=== PATIENT | female | born 1930 | race Caucasian/White ===

== ENCOUNTER 2017-03-01 09:12 | Outpatient (CLI) | payer MEDICARE, OTHER | END 2017-03-01 09:13 | disposition home or self-care (01) | LOC: RT.S 09:12 | PROVIDERS: ATTEND Physician Assistant | DX: R06.02 Shortness of breath (principal) | CPT/HCPCS: 93005 ==

== ENCOUNTER 2017-07-15 12:43 | Outpatient (CLI) | payer MEDICARE, OTHER ==
[2017-07-15] MEDS ORDERED: GADOBUTROL 7.5 MMOL/7.5 ML VIAL ONE (13:34)
[2017-07-15] MEDS ORDERED: GADOBUTROL 7.5 MMOL/7.5 ML VIAL IVP ONE (14:45)
--- NOTE | 2017-07-16 09:45 | MRI Report ---
EXAM: MR PELVIS WITH AND WITHOUT CONTRAST EXAM DATE: 07/15/2017 03:17 PM. CLINICAL HISTORY: PAIN, RECTAL DISCHARGE, BULGE, CONCERN FOR FISTULA. COMPARISON: None. TECHNIQUE: Multiplanar breath-hold T1, T2 sequences obtained through the pelvis on an MR scanner. Betina ges obtained before and after administration of 4 mL Gadavist intravenous contrast. FINDINGS: Bowel: Sigmoid diverticulosis. No inflammation. No fistula evident. No perirectal or soft tissue abscess. Bladder: The urinary bladder appears normal. Reproductive Organs: Prior hysterectomy. Left ovary or ovarian remnant measures 1.8 x 0.8 x 1.4 cm. R ight ovary measures 1.6 x 0.8 x 1.4 cm. No suspicious adnexal mass. Left perineal soft tissue edema. No soft tissue air. Bony Structures: No suspicious bony lesions. IMPRESSION: 1. Left perineal soft tissue edema. 2. No evidence for perianal fistula or soft tissue abscess. 3. Diverticulosis. No inflammation evident. 4. Prior hysterectomy. [facility] Referring Provider Line: [phone] SITE ID: [id number]
== END 2017-07-15 12:44 | disposition home or self-care (01) ==
LOC: LAB 12:43
PROVIDERS: ATTEND Physician Assistant
DX: R60.9 Edema, unspecified (principal); K57.90 Diverticulosis of intestine, part unspecified, without perforation or abscess without bleeding
CPT/HCPCS: 36415; 72197; 82565; A9585

== ENCOUNTER 2017-09-21 09:14 | Outpatient (CLI) | payer MEDICARE, OTHER ==
--- NOTE | 2017-09-21 13:46 | Ultrasound Report ---
RIGHT UPPER QUADRANT ULTRASOUND: 09/21/2017 CLINICAL INDICATION: Pain. TECHNIQUE: Real-time scanning was performed with in home sales representative static images obtained. FINDINGS: The liver measures 13.8 cm. Hepatic echogenicity is normal. No intrahepatic biliary dilatation or focal parenchymal lesion is present. The common bile duct measures 3 mm. The gallbladder is normal. The right kidney measures 9.7 cm, and demonstrates a 3.6 cm cyst in the upper pole. No hydronephrosis is seen. No free fluid is present. IMPRESSION: NO EVIDENCE OF CHOLELITHIASIS OR BILIARY OBSTRUCTION. INCIDENTAL RIGHT UPPER POLE RENAL CYST. TD: 09/21/2017 13:45
== END 2017-09-21 09:15 | disposition home or self-care (01) ==
LOC: DI 09:14
PROVIDERS: ATTEND Physician Assistant
DX: R10.11 Right upper quadrant pain (principal)
CPT/HCPCS: 76705

== ENCOUNTER 2017-09-28 11:35 | Emergency (ER) | payer MEDICARE, OTHER ==
[2017-09-28] MEDS ORDERED: AMOX/CLAV 875 MG/125 MG TABLET PO STA (12:50)
--- NOTE | 2017-09-28 12:50 | ED Physician Documentation ---
PD HPI URI - Stated complaint Stated Complaint: FLU SX - Chief complaint Chief Complaint: Resp - History obtained from History obtained from: Patient, Family - History of Present Illness Timing - onset: Other (She was exposed to influenza about 4 days ago. Starting about 2 days ago she developed sinus pressure both sides, body aches, right ear pain. No fevers though. No recent travel.) Review of Systems Constitutional: reports: Myalgias. denies: Fever Nose: reports: Rhinorrhea / runny nose, Sinus pressure / pain Throat: denies: Sore throat Respiratory: reports: Cough. denies: Dyspnea PD PAST MEDICAL HISTORY - Past Medical History Past Medical History: Yes - Present Medications Home Medications: Ambulatory Orders Medication Instructions Recorded Confirmed Sertraline [Zoloft] 25 mg PO DAILY 04/12/16 04/12/16 hydroCHLOROthiazide 12.5 mg PO 04/12/16 [Hydrochlorothiazide] Amox/Clav 875/125 [Augmentin] 1 each PO Q12H #20 tablet 09/28/17 - Allergies Allergies/Adverse Reactions: Allergies Allergy/AdvReac Type Severity Reaction Status Date / Time sulfur dioxide AdvReac Nausea Verified 09/28/17 11:42 - Social History Does the pt smoke?: No Smoking Status: Never smoker PD ED PE NORMAL - Vitals Vital signs reviewed: Yes - General General: Alert and oriented X 3, No acute distress - HEENT HEENT: PERRL, EOMI, Pharynx benign, Other (Retracted right TM, no otitis, mild tenderness over the right maxillary sinus.) - Neck Neck: Supple, no meningeal sign, No bony TTP - Cardiac Cardiac: RRR, No murmur - Respiratory Respiratory: No respiratory distress, Clear bilaterally - Abdomen Abdomen: Normal bowel sounds, Soft, Non tender - Neuro Neuro: Alert and oriented X 3, Normal speech Results - Vitals Vitals: Vital Signs - 24 hr 09/28/17 11:36 Temperature 37.3 C Heart Rate 85 Respiratory 18 Rate Blood Pressure 105/62 O2 Saturation 97 Oxygen O2 Source Room air - Labs Labs: Laboratory Tests 09/28/17 12:10 Influenza A (Rapid) Negative Influenza B (Rapid) Negative Influenza Types A,B Ag - Departure - Departure Disposition: 01 Home, Self Care Clinical Impression: Sinusitis Qualifiers: Sinusitis location: maxillary Chronicity: acute Recurrence: non-recurrent Qualified Code(s): J01.00 - Acute maxillary sinusitis, unspecified Condition: Good Record reviewed to determine appropriate education?: Yes Instructions: ED Sinusitis Abx Tx Prescriptions: Amox/Clav 875/125 [Augmentin] 1 each PO Q12H #20 tablet Comments: Call your doctor to arrange a follow-up appointment, make the next available appointment. In the interim, return anytime if worse or if new symptoms develop.
[2017-09-28 12:59] VITALS: BP 107/61
== END 2017-09-28 12:57 | disposition home or self-care (01) ==
LOC: ED 11:35
DX: J01.00 Acute maxillary sinusitis, unspecified (principal)
CPT/HCPCS: 87275; 87276; 99283; A9270

== ENCOUNTER 2017-11-16 12:28 | Outpatient (CLI) | payer MEDICARE, OTHER ==
--- NOTE | 2017-11-16 13:24 | Ultrasound Report ---
THYROID ULTRASOUND: 11/16/2017 CLINICAL INDICATION: Palpable abnormality right thyroid on clinical exam. TECHNIQUE: Real-time scanning was performed with security representative static images obtained. FINDINGS: The right lobe of the thyroid measures 4.7 x 1.3 x 0.8 cm, and the left lobe measures 4.3 x 1.2 x 1.0 cm. The isthmus measures 2 mm. The thyroid demonstrates homogeneous echotexture. No focal solid or cystic lesion is appreciated. No lymphadenopathy is seen. IMPRESSION: NORMAL THYROID ULTRASOUND. TD: 11/16/2017 13:24
== END 2017-11-16 12:29 | disposition home or self-care (01) ==
LOC: DI 12:28
PROVIDERS: ATTEND Nurse Practitioner Family
DX: E07.9 Disorder of thyroid, unspecified (principal)
CPT/HCPCS: 76536

== ENCOUNTER 2018-02-07 11:26 | Emergency (ER) | payer MEDICARE, OTHER ==
--- NOTE | 2018-02-07 12:48 | ED Physician Documentation ---
PD HPI Fall - Stated complaint Stated Complaint: GLF/HAND INJURY - Chief complaint Chief Complaint: Ext Problem - History obtained from History obtained from: Patient - History of Present Illness Mechanism of injury: Tripped, Slipped Fall distance: Standing position Where injury occurred: Home Timing - onset: How many days ago (2) Injury(ies) location: Head, Right Upper Extremity Quality of pain: Aching Associated symptoms: No: LOC, AMS, Neck pain Worsens with: Movement, Palpation Similar symptoms before: Has not had sx before Recently seen: Not recently seen - Additional information Additional information: Patient is a 87 year old female who is presenting to the emergency department for fall. According to patient and family the patient fell two days ago. Patient states that she was just trying to walk too quickly and tripped on her feet. patient landed on her right side bruising her right arm and hand and hitting her head. patient denies loc but states that she has been nauseated the last two days. Review of Systems Ten Systems: 10 systems reviewed and negative Eyes: denies: Loss of vision, Decreased vision, Photophobia Ears: denies: Drainage/discharge GI: reports: Nausea. denies: Vomiting, Constipation Musculoskeletal: reports: Extremity pain, Extremity swelling, Joint swelling Neurologic: reports: Head injury. 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 Derm: Skin cancer surgery - Present Medications Home Medications: Ambulatory Orders Medication Instructions Recorded Confirmed Sertraline [Zoloft] 25 mg PO DAILY 04/12/16 04/12/16 hydroCHLOROthiazide 12.5 mg PO 04/12/16 [Hydrochlorothiazide] Omeprazole [PriLOSEC] 20 mg PO DAILY 02/07/18 02/07/18 - Allergies Allergies/Adverse Reactions: Allergies Allergy/AdvReac Type Severity Reaction Status Date / Time sulfur dioxide AdvReac Nausea Verified 02/07/18 11:37 - Social History Does the pt smoke?: No Smoking Status: Never smoker Does the pt drink ETOH?: Yes Does the pt have substance abuse?: No - Immunizations Immunizations are current?: Yes - POLST Patient has POLST: Yes PD ED PE NORMAL - Vitals Vital signs reviewed: Yes - General General: Alert and oriented X 3 - Cardiac Cardiac: RRR - Respiratory Respiratory: No respiratory distress - Abdomen Abdomen: Non distended - Neuro Neuro: Alert and oriented X 3, No motor deficit, Normal speech PD ED PE EXPANDED - HEENT HEENT: Head injury (mild tenderness to right posterior scalp) - Cardiac Cardiac: Radial strong equal - Derm Derm: Bruising - Extremities Extremities: Right shoulder (full rom), Right elbow (no tenderness, full rom), Right wrist, Right hand (tenderness and swelling of right hand and wrist) Results - Vitals Vitals: Vital Signs - 24 hr 02/07/18 02/07/18 11:32 13:23 Temperature 36.3 C L 36.3 C L Heart Rate 71 65 Respiratory 18 16 Rate Blood Pressure 154/99 H 121/71 O2 Saturation 98 97 Oxygen O2 Source Room air - Rads (name of study) hand rt Radiology: Final report received (distal radial fracture) wrist/forearm Radiology: Final report received (distal radial fracture) ct head Radiology: Final report received (no acute traumatic injuries) PD MEDICAL DECISION MAKING - ED course Complexity details: reviewed old records, reviewed results, re-evaluated patient , considered differential, d/w patient ED course: Patient was seen and examined at bedside. Imaging was ordered. When patient returned from imaging results were reviewed. there was a distal radial fracture. Patient was placed in a volar splint and given orthopedic follow up. Family was made aware of the CT head abnormalities. Patient required no further inpatient work up and was stable for discharge with outpatient follow up. - Sepsis Event Vital Signs: Vital Signs - 24 hr 02/07/18 02/07/18 11:32 13:23 Temperature 36.3 C L 36.3 C L Heart Rate 71 65 Respiratory 18 16 Rate Blood Pressure 154/99 H 121/71 O2 Saturation 98 97 Oxygen O2 Source Room air Departure - Departure Disposition: 01 Home, Self Care Clinical Impression: Distal radius fracture, right Condition: Good Instructions: ED Fx Upper Ext Follow-Up: Willie Tai MD [Provider Admit Priv/Credential] - Within 3 Days Comments: Your symptoms today are being caused by a distal radial fracture. you have been placed in a splint but it is important that you follow up with the orthopedic (Dr. Tai's office) for definitive care. you should ice your wrist at least 6 times a day and keep your wrist elevated. you can take tylenol 1000mg as needed for pain. you may return to the emergency department at any time for new, worsening or uncontrollable symptoms.
--- NOTE | 2018-02-07 13:14 | CT Report ---
Procedure Date: 02/07/2018 Accession Number: [id number] / [id number] Procedure: CT - Head W/O CPT Code: FULL RESULT: EXAM: CT HEAD EXAM DATE: 02/07/2018 12:58 PM. CLINICAL HISTORY: Fall unto right side of body. COMPARISON: None. TECHNIQUE: Multiaxial CT images were obtained from the foramen magnum to the vertex. Reformats: Coronal. IV contrast: None. In accordance with CT protocol optimization, one or more of the following dose reduction techniques were utilized for this exam: automated exposure control, adjustment of mA and/or KV based on patient size, or use of iterative reconstructive technique. FINDINGS: Parenchyma: 2 mm calcification right frontal lobe. No intraparenchymal hemorrhage. No evidence of mass, midline shift, or CT findings of acute infarction. Bunch-white differentiation is distinct. Diffuse chronic microangiopathic white matter changes are evident. Extraaxial Spaces: 6 mm right parafalcine calcification possible small meningioma versus falx calcification no subdural or epidural collections identified. Ventricles: The ventricles and cortical sulci are enlarged, consistent with age-related tissue loss. Sinuses and orbits: Imaged paranasal sinuses, orbits, and mastoids show no significant abnormality. Bones: No evidence of fracture or calvarial defect. Other: None. IMPRESSION: 1. Generalized age-related cortical atrophic changes without evidence of acute intracranial abnormality. 2. 2 Mm calcification right frontal lobe. Further evaluation could be with nonemergent MRI [facility]
[2018-02-07 13:24] VITALS: BP 121/71
--- NOTE | 2018-02-07 13:42 | XRAY Report ---
Procedure Date: 02/07/2018 Accession Number: [id number] / [id number] Procedure: XR - Wrist 2 View RT CPT Code: FULL RESULT: EXAM: RIGHT WRIST RADIOGRAPHY EXAM DATE: 02/07/2018 01:15 PM. CLINICAL HISTORY: Fall unto right side of body. COMPARISON: HAND 3 VIEW RT 04/12/2016. TECHNIQUE: 2 views. FINDINGS: Bones: Diffuse osteopenia limits evaluation. Concern for nondisplaced distal radial fracture with subtle cortical buckling along distal metaphysis and linear lucency representing intra-articular extension. Joints: Advanced first carpometacarpal joint degenerative changes with narrowing of joint space, subchondral sclerosis, remodeling of articular contours and marginal osteophytes. Soft Tissues: TFCC calcification. IMPRESSION: 1. Although limited by osteopenia, exam raises concern for a subtle, comminuted distal right radial fracture with intra-articular extension. 2. Degenerative changes. [facility]
--- NOTE | 2018-02-07 13:44 | XRAY Report ---
Procedure Date: 02/07/2018 Accession Number: [id number] / [id number] Procedure: XR - Forearm RT CPT Code: FULL RESULT: EXAM: RIGHT FOREARM RADIOGRAPHY EXAM DATE: 02/07/2018 01:15 PM. CLINICAL HISTORY: Fall unto right side of body. COMPARISON: WRIST 2 VIEW RT 02/07/2018. TECHNIQUE: 2 views. FINDINGS: Bones: Comminuted distal right radial fracture with intra-articular extension. Diffuse osteopenia. Joints: Normal. No effusions or subluxations in the visualized wrist or elbow joints. Soft Tissues: Olecranon enthesophyte. IMPRESSION: 1. Comminuted distal right radial fracture with intra-articular extension. [facility]
--- NOTE | 2018-02-07 13:47 | XRAY Report ---
Procedure Date: 02/07/2018 Accession Number: [id number] / [id number] Procedure: XR - Hand 2 View RT CPT Code: FULL RESULT: EXAM: RIGHT HAND RADIOGRAPHY EXAM DATE: 02/07/2018 01:15 PM. CLINICAL HISTORY: Fall unto right side of body. COMPARISON: HAND 3 VIEW RT 04/12/2016 FOREARM RT 02/07/2018. TECHNIQUE: 3 views. FINDINGS: Bones: Diffuse osteopenia. Intra-articular distal radial fracture. Joints: Osteoarthritic changes with narrowing of proximal and distal interferential joint spaces. Narrowing of second metacarpophalangeal joint space. First carpometacarpal joint degenerative changes . Soft Tissues: TFCC calcification . No soft tissue swelling. IMPRESSION: 1. Intra-articular distal radial fracture. 2. Diffuse osteopenia. 3. Osteoarthritic changes. [facility]
== END 2018-02-07 14:25 | disposition home or self-care (01) ==
LOC: ED 11:26
DX: S52.501A Unspecified fracture of the lower end of right radius, initial encounter for closed fracture (principal); W01.0XXA Fall on same level from slipping, tripping and stumbling without subsequent striking against object, initial encounter; Y92.009 Unspecified place in unspecified non-institutional (private) residence as the place of occurrence of the external cause
CPT/HCPCS: 29105; 70450; 99283

== ENCOUNTER 2019-09-19 12:59 | Outpatient (CLI) | payer MEDICARE, OTHER ==
--- NOTE | 2019-09-19 15:21 | XRAY Report ---
Reason: PAIN IN LT SHOULDER Procedure Date: 09/19/2019 Accession Number: [id number] / [id number] Procedure: XRS - Shoulder 2 View LT CPT Code: Final Report FULL RESULT: EXAM: LEFT SHOULDER RADIOGRAPHY EXAM DATE: 09/19/2019 01:42 PM. CLINICAL HISTORY: Acute on chronic left shoulder pain. COMPARISON: None. TECHNIQUE: 4 views. FINDINGS: Bones: Decreased bone mineralization. Postsurgical changes in the proximal left humerus. Healed fracture of the mid diaphysis of the left clavicle. Multilevel cervical and thoracic spondylosis. Healed multiple upper left rib fractures. Joints: Postsurgical changes of left shoulder hemiarthroplasty. No subluxation. The acromioclavicular joint is intact. Soft tissues: The remaining visualized hemithorax is unremarkable. No soft tissue swelling. IMPRESSION: 1. Postsurgical changes of left shoulder hemiarthroplasty. 2. No subluxation. 3. Healed fractures of the left clavicle and multiple upper left ribs. 4. Decreased bone mineralization. [facility]
--- NOTE | 2019-09-19 15:28 | XRAY Report ---
Reason: CERVICALGIA Procedure Date: 09/19/2019 Accession Number: [id number] / [id number] Procedure: XRS - Cervical Spine 2 View CPT Code: Final Report FULL RESULT: EXAM: CERVICAL SPINE RADIOGRAPHY EXAM DATE: 09/19/2019 01:42 PM. CLINICAL HISTORY: Chronic neck pain that radiates to the left shoulder. COMPARISONS: None. TECHNIQUE: 3 views. FINDINGS: Alignment: Normal cervical lordosis. 2 mm anterolisthesis of C3 with respect to C4 and 2 mm anterolisthesis of C2 with respect to C3. No other vertebral body subluxation. No scoliosis. Bones: The cervical vertebral bodies and posterior elements are well visualized from the skull base through C7-T1. No fractures or bone lesions. Decreased bone mineralization. Healed left clavicle fracture. Disks: Intervertebral disk space narrowing with marginal ossified formation from C3-C4 through C7-T1. Facets: Multilevel bilateral facet arthrosis throughout the cervical spine, greater on the left than the right. Soft Tissues: Tortuous thoracic aorta. No prevertebral soft tissue swelling. The visualized lung apices are clear. IMPRESSION: 1. Anterolisthesis of C2 with respect to C3 and C3 with respect to C4, each measuring 2 mm, secondary to bilateral facet arthrosis. 2. Multilevel degenerative disk disease and left greater than right multilevel facet arthrosis. 3. Decreased bone mineralization 4. No acute fracture. [facility]
== END 2019-09-19 13:00 | disposition home or self-care (01) ==
LOC: DI.S 12:59
PROVIDERS: ATTEND Physician Assistant
DX: M50.31 Other cervical disc degeneration, high cervical region (principal); M47.812 Spondylosis without myelopathy or radiculopathy, cervical region; M43.12 Spondylolisthesis, cervical region; M25.512 Pain in left shoulder; Z96.612 Presence of left artificial shoulder joint
CPT/HCPCS: 72040